=== PATIENT | male | born 2005 | race Two or more races ===

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

== ENCOUNTER 2025-05-03 08:43 | Emergency (ER) | payer OTHER, SELFPAY ==
--- NOTE | 2025-05-03 08:45 | ED_ITS ---
HPI - Eye Problem General Chief complaint: Eye Problems Stated complaint: LT Eye Injury Time Seen by Provider: 05/03/25 08:45 Source: patient Mode of arrival: ambulatory Limitations: no limitations History of Present Illness HPI Narrative: Guillermo is a 20 year old male patient presenting to the clinic today with c/o possible FB in the left eye. He reports he thinks he may have gotten a piece of wood stuck in his eye around 3:00 yesterday afternoon. States the pain is to the left lower lateral eye. Eye is watering and he is having some sensitivity to light. Has flushed his eye without relief. Attempted to get into his eye doctor and they did not have any available appointments. Patient does not were contacts. Is having some photosensitivity and watering of the left eye. Visual acuity is 20/20 on the right, 20/25 on the left Related Data Allergies Allergy/AdvReac Type Severity Reaction Status Date / Time cefdinir AdvReac Mild Rash Verified 05/03/25 08:56 AMOXICILLIN TRIHYDRATE AdvReac Mild Rash Uncoded 05/02/24 15:07 POTASSIUM CLAVULANATE AdvReac Mild Rash Uncoded 05/02/24 15:07 Review of Systems Review of Systems: Pertinent positives per HPI. Patient denies any fever, chills, rash, headache, visual changes, dizziness, cough, runny nose, sore throat, shortness of breath, chest pain, palpitations, nausea, vomiting, diarrhea, constipation, abdominal pain, or any urinary issues. PMFSH Past Medical History Medical History Meningococcal vaccination administered at current visit Social History Social History Social History: 04/25/24 somewhat confident with medical forms Do You Feel Safe in your Home?: Yes Lack of Transportation: No Lack of Food: Never True Current Housing: I Have Housing Concerned About Future Housing: No Difficulty Paying Gas/Electric Bills: No Currently Unemployed: No Education: High School Diploma/GED Difficulty w/ Childcare or Family Care: No Comments At the time of my signature, I reviewed and agree with the nursing past medical, surgical, social, and family history. There is no relevant family history pertinent to the patient complaint. Exam Narrative: General: Well-developed, well nourished, in no apparent distress Head: Normocephalic, atraumatic Eyes: Pupils equally round and reactive to light bilaterally, EOM intact, right sclera and conjunctive clear, no discharge, lids normal, left sclera and conjunctiva mildly injected, Wood's lamp exam was performed and shows no sign of corneal abrasion or foreign body in the left eye Ears: TMs intact and clear, ear canals clear, no drainage, grossly hearing normal. Nose: Nares patent, no discharge, no inflammation, no sinus tenderness. Mouth: Oropharynx without lesions or masses, good dentition, MMM. Neck: Supple, trachea midline, no enlargement of anterior or posterior cervical nodes, no thyroid masses or goiter palpable. Cardio: Regular rate and rhythm, s1 and s2 normal, no murmur appreciated. Resp: Clear to auscultation bilaterally anteriorly and posteriorly, no rhonchi, rales, wheezing or rubs Course Course Emergency Course: Portions of this record may have been created with voice recognition software. Level of Care: Express Care Visit Vital Signs Vital signs: Vital Signs Temperature 36.5 C 05/03/25 08:51 Pulse Rate 62 05/03/25 08:51 Respiratory Rate 18 05/03/25 08:51 Blood Pressure 121/68 05/03/25 08:51 Pulse Oximetry 100 05/03/25 08:51 Oxygen Delivery Room Air 05/03/25 08:51 Temperature 36.5 C 05/03/25 08:51 Pulse Rate 62 05/03/25 08:51 Respiratory Rate 18 05/03/25 08:51 Blood Pressure 121/68 05/03/25 08:51 Pulse Oximetry 100 05/03/25 08:51 Oxygen Delivery Room Air 05/03/25 08:51 Vital signs reviewed Procedures Other Procedure Procedure 1: Other Procedure: Two drops of tetracaine anesthetic was instilled with good anesthesia. Fluorescein stain of the left eye was performed without uptake of dye. No epithelial defect was noted. NO FB, ulcer or dendritic lesions. Upper lid was everted and no FB or lesions were noted. NO Fernando sign. Normal saline irrigation eye solution was performed and the patient tolerated the procedure well, no adverse reaction or complications. Noted visual acuity. MDM - Eye Problem MDM Narrative Medical decision making narrative: At the time of visit patient is resting comfortably on the exam table. Patient appears to be nontoxic. Patient complaints of possible foreign body to the left lower lateral eye. Has sensation as though there is something stuck in his eye. Has attempted to flush his eye without relief. Eye is watering and he is having some photosensitivity. On exam cannot visualize a foreign body. Left sclera and conjunctiva mildly injected. Wood's lamp exam was ordered. Procedure: Wood's lamp exam was performed and shows no sign of visualized foreign body or corneal abrasion to the left eye. No Fernando sign. Patient tolerated well. Plan: I suspect patient has foreign body sensation left eye with some globe irritation. Prescription for polymyxin eyedrops was sent to the pharmacy to cover for secondary infection. Supportive measures were discussed with the patient and they voiced understanding discharge instructions and agrees to treatment plan. Return precautions reviewed Differential Diagnosis Differential diagnosis: Likely corneal abrasion, conjunctivitis, acute iritis, hyphema, periorbital cellulitis, subconjunctival hemorrhage, glaucoma, corneal ulcer, ruptured globe and other (Foreign body in eye) Discharge Plan Discharge Clinical Impression: Sensation of irritation of globe of eye, Foreign body sensation, left eye Patient Disposition: Home Condition: Stable Instructions: Antibiotic Form, Eye Pain (ED) Additional Instructions: No sign of foreign body or corneal abrasion was seen in the clinic today Practice good hand washing techniques Avoid touching eyes Instill eyedrops-polymyxin May use warm moist washcloth to help remove eye discharge If eyes are matted shut-do not pry eyes open-use a warm moist cloth to loosen matting and wipe matter away from eye May take Tylenol/Motrin as needed for pain or fever May take Benadryl as needed for itching Follow-up with your PCP in 3-5 days if symptoms persist or sooner if they worsen Go to the emergency room if you develop any fever that is not controlled by Tylenol or Motrin, loss of vision, eye pain, increase eye swelling,visual changes, headache, confusion, lethargy, weakness, chest pain, or shortness of breath. Patient Language: Greenlandic Prescriptions: New polymyxin B sulf-trimethoprim 10,000 unit- 1 mg/mL drops 1 drp LEFT EYE Q3H 7 Days Qty: 10 0RF Rx Instructions: while awake; do not exceed 6 doses in 24 hours Follow-up/Referrals: Shahida Mckeon PA-C [Primary Care Provider, [facility]] Time of Disposition: 09:18 Quality NIHSS Nursing Documentation ED NIHSS nursing documentation: reviewed/agree
--- OUTSIDE RECORDS SUMMARY | 2025-05-03 08:48 | XMS_ITS | Clinical Summary ---
Author Organization [facility] Address [address] [place] [address] Care Team Providers Care Winterizer Name Role Phone Unavailable Primary Care Provider Unavailabl e Social History Tobacco Use Types Packs/Day Years Used Date Smoking Tobacco: Never Assessed Sex and Gender Information Value Date Recorded Sex Assigned at Not on file Legal Sex Male 7:42 PM CDT Gender Identity Not on file Sexual Orientation Not on file Plan of Treatment Health Maintenance Due Date Last Done Comments Annual Physical 2008 HPV Vaccines (1 - Male 3-dos e series) 2020 Meningococcal B Vaccine (1 o f 2 - Standard) 2021 Hepatitis C 2023 DTaP, Tdap and Td Vaccines ( 1 - Tdap) 2024 Hepatitis B Vaccines (1 of 3 - 19+ 3-dose series) 2024 COVID-19 Vaccine (1 - 2023-2 5 season) 2025 Meningococcal Vaccine Aged Out No carla jose eligible based on patient's age to complete this topic Pneumococcal Vaccine: Pediat rics (0 to 5 Years) and At-Risk Patients (6 to 49 Years) Aged Out No longer eligible b ased on patient's age to complete this topic RSV Immunizations Under 20 Months Aged Out No longer eligible based on patient's age to complete this topic
[2025-05-03 08:51] VITALS: BP 121/68; PULSE 62; RESP 18; TEMP 36.5; O2SAT 100
[2025-05-03] MEDS: FLUORESCEIN SOD 1 MG/STRIP LEFT EYE (09:04)
[2025-05-03] MEDS: TETRACAINE HCL 0.5% OPHTH SOLN 4 ML BTL LEFT EYE (09:05)
[2025-05-03] MEDS: DACRIOSE EYE IRRIGATION 118 ML BOTTLE LEFT EYE (09:05)
== END 2025-05-03 09:23 | disposition home or self-care (01) ==
PROVIDERS: Emergency Provider Nurse Practitioner Family; PCP Physician Assistant Medical
DX: H57.8A2 Foreign body sensation, left eye (principal)
CPT/HCPCS: 99213; A9270; G0463